=== PATIENT | female | born 1990 | race Caucasian/White ===

== ENCOUNTER → 2017-03-25 | Outpatient (REF) ==
[~2017-03-25] MED LIST: ADIPEX-P37.5 MG PO; BACTRIM DS 8001 TAB PO; BCP TD; CEFTIN500 MG PO; CLEOCIN HCL300 MG PO; COLESTID 1GM1 G PO; DROSPIRENONE; INDOMETHACIN50 MG PO; LORTAB 5/500 501 TAB PO; NO HOME MEDICATIONS; NORCO 325 MG-51 TAB PO; PEPCID 20MG TAB20 MG PO; PERCOCET 325 MG1 TA2 PO; PHENERGAN 25 TA25 MG PO; PHENERGAN W/CO120 ML PO; PHENERGAN25 MG RC; PREDNISONE20 MG PO; PREVACID30 MG PO; VIT B 12 IJ; ZANTAC; ZITHROMAX 250M250 MG PO; [UNRECOGNIZED DRUG - OTHER]; [UNRECOGNIZED DRUG - REMARK]
== END ==
LOC: WSOH 16:30
DX: Z02.89 Encounter for other administrative examinations (principal)

== ENCOUNTER 2017-08-25 03:18 | Emergency (ER) | payer OTHER ==
[~2017-08-25] VITALS: Ht 167.6 cm; Wt 77.3 kg
[2017-08-25] MEDS ORDERED: ADDERALL20 MG PO (03:24)
[2017-08-25] MEDS ORDERED: ADDERALL XR25 MG PO (03:24)
[2017-08-25 03:47] LABS: COLLECTION METHOD CLEAN CATCH
[2017-08-25 03:51] LABS: BASO % 0.2 % (0.0-2.0); EOS # 0.1 (0.0-0.7); EOS % 0.6 % (0-4.0); GRAN # 6.6 (1.4-6.5); GRAN % 77.2 % (42.2-75.2); HEMATOCRIT 44.6 % (37.0-47.0); HEMOGLOBIN 15.1 g/dl (12.5-16.0); LYMPH # 1.5 (1.2-3.4); LYMPH % 16.9 % (20.0-51.0); MEAN CELL VOLUME 94 fl (80.0-100.0); MEAN CORPUSCULAR HEMOGLOBIN 32 pg (27.0-31.0); MEAN CORPUSCULAR HGB CONC 34 g/dl (33.0-37.0); MEAN PLATELET VOLUME 10.7 fl (7.4-10.4); MONO # 0.4 (0.1-0.6); MONO % 4.8 % (1.7-9.3); PLATELET COUNT 207 K/mm3 (130-400); RED BLOOD COUNT 4.76 M/mm3 (4.10-5.30); REDCELL DISTRIBUTION WIDTH-CV 12.2 % (11.5-14.5)
[2017-08-25 03:58] LABS: MUCOUS Present /lpf; PH 5 (5-8); URINE APPEARANCE Hazy; URINE BACTERIA Rare /hpf; URINE BILIRUBIN Negative (NEGATIVE); URINE BLOOD Negative (NEGATIVE); URINE COLOR Yellow; URINE GLUCOSE Negative (NEGATIVE); URINE KETONE Negative (NEGATIVE); URINE LEUKOCYTE ESTERASE 1+ (NEGATIVE); URINE NITRATE Negative (NEGATIVE); URINE PROTEIN(semi-quant) Negative (NEGATIVE); URINE RBC 0-2 /hpf; URINE UROBILINOGEN Negative (NEGATIVE)
[2017-08-25 04:01] VITALS: TEMP 97.6
[2017-08-25 04:05] LABS: ALBUMIN 4.5 gm/dL (3.5-5.0); BILIRUBIN,TOTAL 1.6 mg/dL (0.0-1.0); C-REACTIVE PROTEIN 2.8 mg/dL (0.0-0.9); CALCIUM 9.2 mg/dL (8.4-10.2); CREATININE, serum 0.58 mg/dL (0.52-1.25); POTASSIUM 4.2 mmol/L (3.4-5.0); TOTAL PROTEIN 7.5 gm/dL (6.4-8.2)
[2017-08-25] MEDS ORDERED: CIPRO 500MG TA500 MG PO (04:46)
[2017-08-25] MEDS ORDERED: PHENERGAN 25 TA25 MG PO (04:46)
[2017-08-25 04:54] VITALS: BP 114/79; PULSE 89
== END 2017-08-25 05:17 | disposition home or self-care (01) ==
LOC: COL.ER 03:18
PROVIDERS: Emergency Medicine
DX: N39.0 Urinary tract infection, site not specified (principal); F90.9 Attention-deficit hyperactivity disorder, unspecified type; F17.210 Nicotine dependence, cigarettes, uncomplicated; Z90.89 Acquired absence of other organs; Z90.710 Acquired absence of both cervix and uterus
CPT/HCPCS: J2405; J2550; J7030

== ENCOUNTER 2018-05-19 22:46 | Emergency (ER) | payer OTHER ==
[~2018-05-19] VITALS: Ht 167.6 cm; Wt 77.3 kg
[~2018-05-19 22:46] MED LIST changes: +ADDERALL XR25 MG PO; +ADDERALL20 MG PO; +CIPRO 500MG TA500 MG PO
[2018-05-19 22:50] VITALS: BP 136/88; TEMP 97.5
[2018-05-19 23:23] VITALS: PULSE 92
== END 2018-05-19 23:24 | disposition home or self-care (01) ==
LOC: COL.ER 22:46
DX: T59.2X1A Toxic effect of formaldehyde, accidental (unintentional), initial encounter (principal); J34.89 Other specified disorders of nose and nasal sinuses; R51 Headache; F17.210 Nicotine dependence, cigarettes, uncomplicated

== ENCOUNTER → 2020-10-10 | Outpatient (REF) | LOC: COL.LAB 16:46 | DX: Z20.822 Contact with and (suspected) exposure to COVID-19 (principal) ==

== ENCOUNTER → 2023-04-04 | Outpatient (CLI) | payer OTHER | LOC: MHCPAIN 10:17 | DX: M54.50 Low back pain, unspecified (principal); M51.26 Other intervertebral disc displacement, lumbar region; M47.816 Spondylosis without myelopathy or radiculopathy, lumbar region; M48.56XS Collapsed vertebra, not elsewhere classified, lumbar region, sequela of fracture | CPT/HCPCS: G0463 ==

== ENCOUNTER 2023-06-18 05:18 | Day surgery (SDC) | payer OTHER ==
[~2023-06-18] VITALS: Ht 167.6 cm; Wt 65.5 kg
[2023-06-18] MEDS ORDERED: DEXEDRINE10 MG PO (05:52)
[2023-06-18] MEDS ORDERED: GLUCOPHAGE XR750 MG PO (05:52)
[2023-06-18] MEDS ORDERED: DEXEDRINE SPANS15 M1 PO (05:53)
[2023-06-18] MEDS ORDERED: AMBIEN 5MG TABLE5 MG PO (05:54)
[2023-06-18] MEDS ORDERED: VITAMIN B11000 MCG/M IM (05:54)
[2023-06-18 05:55] VITALS: BP 106/71; PULSE 87; TEMP 97.9
[2023-06-18] MEDS ORDERED: WELLBUTRIN XL300 M1 PO (05:55)
--- NOTE | 2023-06-18 06:15 | NUR ---
The patient ambulated back to [facility] independently using a steady gait and appeared to tolerate the activity well. Vital signs obtained. Consent signed. Assessment completed. Home medications reconcilled. 18G IV started in left wrist with LR infusing without difficulty. Urine HCG obtianed with a result of negative. Warm blankets provided. Father brought back to be at her bedside. Call light is within reach. The patient denies any further needs at this time.
[2023-06-18 09:05] VITALS: BP 109/72; PULSE 70; TEMP 97.1
[2023-06-18 09:20] VITALS: BP 105/73; PULSE 66
[2023-06-18 09:35] VITALS: BP 98/60; PULSE 74
--- NOTE | 2023-06-18 10:11 | NUR ---
0905-REPORT OBTAINED FROM EDWIN WILLAMS. PATIENT ARRIVED VIA CART TO [facility], PATIENT DROWSY BUT ORIENTED ON ARRIVAL. VITAL SIGNS TAKEN, VSS. PATIENT STATES PAIN IS 2/10, DENIES NAUSEA. PATIENT'S FATHER, DANNA, BROUGHT TO BEDSIDE. PLAN OF CARE REVIEWED. PO FLUIDS BROUGHT TO PATIENT. 0920-VSS. PATIENT REMAINS DROWSY. TOLERATING PO INTAKE WELL. REPORTS PAIN INCREASED TO 4/10, PRN IV PAIN MEDICATION GIVEN. 0950-PAIN LEVEL IMPROVED, VSS. DENIES FURTHER COMPLAINTS. DISCHARGE PAPERWORK REVIEWED WITH PT AND FATHER, QUESTIONS INVITED. 0955-PT ASSISTED TO BEDSIDE, CHANGED INTO CLOTHING INDEPENDENTLY 0958-IV CATHETER DISCONTINUED, TIP INTACT. PRESSURE HELD AND BANDAGE APPLIED. 1002-PATIENT DISCHARGED HOME TO [facility] VIA WHEELCHAIR, ACCOMPANIED BY FATHER. ALL BELONGINGS AND DC PAPERWORK SENT WITH PT
== END 2023-06-18 10:02 | disposition home or self-care (01) ==
LOC: SDCO 05:18
DX: N70.11 Chronic salpingitis (principal); N83.291 Other ovarian cyst, right side; F17.210 Nicotine dependence, cigarettes, uncomplicated
CPT/HCPCS: J1100; J1885; J2405; J2704; J3010; J7120